=== PATIENT | female | born 1990 ===

== ENCOUNTER 2019-07-07 21:09 | Emergency (ER) | payer SELFPAY ==
[2019-07-07] MEDS ORDERED: diphenhydrAMINE 50 MG/ML VIAL ONE (21:23)
[2019-07-07] MEDS ORDERED: Ketorolac Tromethamine 30 MG/ML VIAL ONE (21:23)
[2019-07-07] MEDS ORDERED: methylPREDNISolone Sod Succ/PF 125 MG/2 ML VIAL ONE (21:23)
[2019-07-07] MEDS ORDERED: Metoclopramide HCl 10 MG/2 ML VIAL ONE (21:23)
== END 2019-07-07 23:02 | disposition home or self-care (01) ==
LOC: ERS 21:09
DX: G43.909 Migraine, unspecified, not intractable, without status migrainosus (principal); F17.210 Nicotine dependence, cigarettes, uncomplicated
CPT/HCPCS: 96365; 96375; J1200; J1885; J2765; J2930